=== PATIENT | male | born 1960 | race Caucasian/White ===

== ENCOUNTER → 2024-01-06 14:15 | Outpatient (REF) | payer OTHER, SELFPAY | LOC: RAD 14:15 | PROVIDERS: ATTENDING PHYSICIAN Internal Medicine | DX: R79.89 Other specified abnormal findings of blood chemistry (principal) | CPT/HCPCS: 76536 ==

== ENCOUNTER → 2024-06-14 07:04 | Outpatient (REF) | payer OTHER, SELFPAY ==
[2024-06-14 08:19] LABS: INR 3.69; PT 37.2 Sec (11.4-14.6)
== END ==
LOC: REG 07:04
PROVIDERS: ATTENDING PHYSICIAN Internal Medicine Hematology & Oncology; FAMILY PHYSICIAN Internal Medicine
DX: I82.401 Acute embolism and thrombosis of unspecified deep veins of right lower extremity (principal)
CPT/HCPCS: 36415; 85610

== ENCOUNTER → 2024-08-03 09:11 | Outpatient (REF) | payer OTHER, SELFPAY | LOC: RCS 09:11 | PROVIDERS: ATTENDING PHYSICIAN Internal Medicine Cardiovascular Disease; FAMILY PHYSICIAN Internal Medicine | DX: I42.9 Cardiomyopathy, unspecified (principal) | CPT/HCPCS: 93306 ==

== ENCOUNTER → 2024-08-26 16:40 | Outpatient (REF) | payer OTHER, SELFPAY | LOC: RAD 16:40 | PROVIDERS: ATTENDING PHYSICIAN Nurse Practitioner Family | DX: R05.1 Acute cough (principal); R04.2 Hemoptysis | CPT/HCPCS: 71046 ==

== ENCOUNTER → 2024-12-14 10:29 | Outpatient (REF) | payer OTHER, SELFPAY | LOC: RCS 10:29 | PROVIDERS: ATTENDING PHYSICIAN Internal Medicine Cardiovascular Disease; FAMILY PHYSICIAN Internal Medicine | DX: I42.9 Cardiomyopathy, unspecified (principal) | CPT/HCPCS: 93306 ==

== ENCOUNTER → 2025-03-22 08:31 | Outpatient (REF) | payer OTHER, SELFPAY | LOC: RAD 08:31 | PROVIDERS: ATTENDING PHYSICIAN Nurse Practitioner Primary Care | DX: R76.0 Raised antibody titer (principal); Z87.19 Personal history of other diseases of the digestive system | CPT/HCPCS: 74177; Q9967 ==

== ENCOUNTER 2025-09-20 08:05 | Outpatient (RCR) | payer OTHER, SELFPAY | END 2025-09-20 23:59 | disposition home or self-care (01) | LOC: RPT 08:05 | PROVIDERS: ATTENDING PHYSICIAN Internal Medicine | DX: R29.898 Other symptoms and signs involving the musculoskeletal system (principal); Z73.6 Limitation of activities due to disability; R26.2 Difficulty in walking, not elsewhere classified; M62.81 Muscle weakness (generalized); M54.50 Low back pain, unspecified; M79.661 Pain in right lower leg; R26.89 Other abnormalities of gait and mobility; Z96.643 Presence of artificial hip joint, bilateral | CPT/HCPCS: 97110; 97112; 97140; 97161; 97530 ==

== ENCOUNTER 2025-10-04 08:40 | Outpatient (RCR) | payer OTHER, SELFPAY | END 2025-10-04 23:59 | disposition home or self-care (01) | LOC: RPT 08:40 | PROVIDERS: ATTENDING PHYSICIAN Internal Medicine | DX: R29.898 Other symptoms and signs involving the musculoskeletal system (principal); Z73.6 Limitation of activities due to disability; R26.2 Difficulty in walking, not elsewhere classified; M62.81 Muscle weakness (generalized); M54.50 Low back pain, unspecified; M79.661 Pain in right lower leg; R26.89 Other abnormalities of gait and mobility; Z96.643 Presence of artificial hip joint, bilateral | CPT/HCPCS: 97110 ==

== ENCOUNTER → 2025-10-11 16:03 | Outpatient (REF) | payer OTHER, SELFPAY | LOC: PAVMRI 16:03 | PROVIDERS: ATTENDING PHYSICIAN Internal Medicine | DX: M54.16 Radiculopathy, lumbar region (principal) | CPT/HCPCS: 72148 ==

== ENCOUNTER 2025-11-01 15:03 | Outpatient (RCR) | payer OTHER, SELFPAY | END 2025-11-01 23:59 | disposition home or self-care (01) | LOC: RPT 15:03 | PROVIDERS: ATTENDING PHYSICIAN Internal Medicine | DX: R29.898 Other symptoms and signs involving the musculoskeletal system (principal); Z73.6 Limitation of activities due to disability; R26.2 Difficulty in walking, not elsewhere classified; M62.81 Muscle weakness (generalized); M54.50 Low back pain, unspecified; M79.661 Pain in right lower leg; R26.89 Other abnormalities of gait and mobility; Z96.643 Presence of artificial hip joint, bilateral | CPT/HCPCS: 97110 ==